=== PATIENT | female | born 1970 | race Caucasian/White ===

== ENCOUNTER → 2020-09-03 13:49 | Outpatient (REF) | payer BC, SELFPAY | LOC: ANHLAB 13:49 | PROVIDERS: PCP Family Medicine; Visit Provider Nurse Practitioner | DX: L72.0 Epidermal cyst (principal) | CPT/HCPCS: 88304 ==

== ENCOUNTER 2021-08-27 03:01 | Day surgery (SDC) | payer BC, SELFPAY ==
[2021-08-09 14:33] VITALS: BMI 29.7
--- NOTE | 2021-08-26 10:54 | P.PNAN_ITS ---
Anes - Initial Pre Proc Eval Procedure: Operation Date: 08/27/21 08:00 Proposed Procedures p Screening Colonoscopy - Reji Gleason MD Date/Time: 08/26/21 10:54 Surgeon: Reji Gleason MD Pre Op Diagnosis: neoplasm screening Patient Data Age: 51 Gender: F Height: 1.65 m Weight: 81 kg Allergies Allergy/AdvReac Type Severity Reaction Status Date / Time No Known Allergies Allergy Mild Verified 08/27/21 06:47 Home Medications Medication Instructions Recorded Confirmed Type No Home Medications 09/30/19 08/27/21 History Patient hx anesthesia problems: none Family hx anesthesia problems: none Results Review: All pre-operative results and documents have been reviewed as part of the pre-operative evaluation. [facility] [place] Past Medical History Medical History ADD (attention deficit disorder) BMI 29.0-29.9,adult Elevated ALT measurement Screen for colon cancer Family History Family History Other Diabetes mellitus Hypertension Social History Social History Smoking status: Never smoker Alcohol intake: current Drinks per week: 1 Substance use type: does not use Living arrangements: with family Spiritual care concerns: No Anes - Eval Final PreProcedure Day of Procedure 08/26/21 10:54 Patient weight: overweight Heart: regular rate and rhythm Lungs: clear to auscultation and normal air movement Airway: Mallampati scale class II Neurological: alert and oriented Last oral intake: >/= 8 hours ASA classification: II Emergent: no Anesthetic plan: proceed Anesthesia type and monitoring: general GIVS and standard monitoring Results Review: All pre-operative results and documents have been reviewed as part of the pre-operative evaluation. Informed Consent: The patient's anesthetic plan and its attendant risks and benefits were discussed with the patient/family/POA. Questions were solicited and answers provided to the satisfaction of the patient/family/POA.
--- NOTE | 2021-08-26 13:00 | PM.HPGS ---
History of Present Illness History of Present Illness Consent: Risks, benefits, and alternatives have been discussed and questions answered. Patient agrees to proceed with procedure. Chief complaint: neoplasm screening Narrative: Staci Braga is a 51 year old female referred for colon cancer screening Review of Systems Review of Systems: All systems reviewed & are unremarkable except as noted in HPI and below PMFSH Past Medical History Medical History ADD (attention deficit disorder) BMI 29.0-29.9,adult Elevated ALT measurement Screen for colon cancer Family History Family History Other Diabetes mellitus Hypertension Social History Social History Smoking status: Never smoker Alcohol intake: current Drinks per week: 1 Substance use type: does not use Living arrangements: with family Spiritual care concerns: No Meds Home Medications and Allergies Home Medications Medication Instructions Recorded Confirmed Type No Home Medications 09/30/19 08/27/21 History Allergies Allergy/AdvReac Type Severity Reaction Status Date / Time No Known Allergies Allergy Mild Verified 08/27/21 06:47 Exam Resp: Auscultation: clear to auscultation bilaterally Cardio: Rate: regular rate Rhythm: regular rhythm GI: GI Palp: Yes Soft to palpation and No Tenderness to palpation present (GI) Assessment and Plan Assessment and plan (1) Screen for colon cancer: Code(s): Z12.11 - Encounter for screening for malignant neoplasm of colon Status: Acute Assessment and Plan: Colonoscopy with possible biopsy or polypectomy or cautery or injection of substances.
[2021-08-27 06:49] VITALS: BP 130/85; PULSE 79; RESP 16; TEMP 36.9; O2SAT 97
[2021-08-27] MEDS: LACTATED RINGERS 1,000 ML 150 ML IV CONT (07:00)
[2021-08-27] MEDS: ONDANSETRON INJ 4 MG/2 ML VIAL IV PUSH (07:14)
[2021-08-27 08:08] VITALS: BP 107/63; PULSE 81; RESP 20; O2SAT 97
[2021-08-27 08:18] VITALS: BP 113/72; PULSE 69; RESP 14; O2SAT 98
[2021-08-27 08:28] VITALS: BP 130/79; PULSE 72; RESP 14; O2SAT 95
== END 2021-08-27 08:40 | disposition home or self-care (01) ==
PROVIDERS: PCP Family Medicine; Visit Provider Internal Medicine Gastroenterology
PROC: 0DJD8ZZ Inspection of Lower Intestinal Tract, Via Natural or Artificial Opening Endoscopic (ICD-10-PCS; CPT 45378; principal; 2021-08-27 08:00)
DX: Z12.11 Encounter for screening for malignant neoplasm of colon (principal); F98.8 Other specified behavioral and emotional disorders with onset usually occurring in childhood and adolescence; R74.01 Elevation of levels of liver transaminase levels
CPT/HCPCS: 45378; J2405; J2704; J7120

== ENCOUNTER 2021-08-27 12:57 | Outpatient (CLI) | payer BC, SELFPAY ==
--- NOTE | ~2021-08-27 | US_ITS ---
EXAMINATION: US abdomen complete EXAM DATE: 08/27/2021 15:34 INDICATION: R74.8 - Abnormal levels of other serum enzymes. TECHNIQUE: Multiple grayscale and Doppler images of the complete abdomen were obtained (by a technolo gist who performed the scan) and subsequently reviewed. There is no prior study for comparison. FINDINGS: The abdominal aorta is normal in caliber. Visualized portion IVC is patent. The pancreatic head a nd body are normal in appearance. The pancreatic tail is not visualized. There is echogenic liver parenchyma, hepatic steatosis. There are no focal liver lesions identified. There is no evidence of intrahepatic biliary duct dilation. Portal venous flow was seen in the he patopedal, normal direction and has normal Doppler waveform. Common bile duct measures 3 mm, which is normal. The gallbladder wall is normal in thickness, with ex pected amount of distention. No sonographic evidence of pericholecystic fluid. There is no cholelit hiases. Technologist performing exam reports patient did not demonstrate sonographic Truong's sign. Please note that this sign is less reliable in patients who have received pain medication. Right kidney: There is normal contour and echogenicity. It measures 8.9 x 4.4 x 4.7 centimeters. T here are no focal renal lesions identified. There is no hydronephrosis. Left kidney: There is normal contour and echogenicity. It measures 9.7 x 4.5 x 5.7 centimeters. Th ere are no focal renal lesions identified. There is no hydronephrosis. The spleen measures 9.3 centimeters and is morphologically normal. IMPRESSION: Hepatic steatosis. Reviewed, dictated and finalized at location [facility] IMPRESSION: Hepatic steatosis.
== END 2021-08-27 12:58 | disposition home or self-care (01) ==
PROVIDERS: PCP Family Medicine; Visit Provider Nurse Practitioner Family
DX: R74.8 Abnormal levels of other serum enzymes (principal); K76.0 Fatty (change of) liver, not elsewhere classified
CPT/HCPCS: 76700

== ENCOUNTER 2025-01-23 15:34 | Outpatient (CLI) | payer BC, SELFPAY ==
--- NOTE | ~2025-01-23 | XR_ITS ---
Lumbosacral Spine: AP, oblique, and lateral views, with neutral, flexion, extension positioning Clinical History: Pain Findings: The normal lordotic curve is maintained. The vertebral bodies and posterior elements are i ntact. The intervertebral disc spaces are preserved. There is moderate facet arthropathy at the lowe r lumbar spine. No instability seen on flexion or extension. The sacroiliac joints are normally outli kev. Impression: Moderate facet arthropathy lower lumbar spine. No other significant findings. Reviewed, dictated and finalized at location M. Impression: Moderate facet arthropathy lower lumbar spine. No other significant findings.
== END 2025-01-23 15:35 | disposition home or self-care (01) ==
LOC: GOSHIMG 15:34
PROVIDERS: PCP Chiropractor; Visit Provider Chiropractor
DX: M54.16 Radiculopathy, lumbar region (principal)
CPT/HCPCS: 72114